=== PATIENT | male | born 1970 | race Two or more races ===

== ENCOUNTER 2019-10-28 10:38 | Emergency (ER) | payer MEDICAID ==
[~2019-10-28] VITALS: Ht 170.2 cm; Wt 78.9 kg
[2019-10-28 13:45] VITALS: BP 152/88
== END 2019-10-28 15:22 | disposition home or self-care (01) ==
LOC: ER 10:39
DX: N39.0 Urinary tract infection, site not specified (principal); R05 Cough
CPT/HCPCS: 71046; 74176; 81002